=== PATIENT | male | born 1980 | race Caucasian/White ===

== ENCOUNTER 2021-04-16 21:41 | Emergency (ER) | payer BC ==
[2021-04-16] MEDS ORDERED: Tetracaine 0.5% PF 4 ML BOT ONE (22:16)
[2021-04-16] MEDS ORDERED: Fluorescein Opthalmic Strip ONE (22:51)
[2021-04-16] MEDS ORDERED: HYDROcodone/Acetaminophen 10/325 mg Tablet ONE (22:51)
[2021-04-16] MEDS ORDERED: Lorazepam 2 MG/ML VIAL ONE (23:24)
[2021-04-17] MEDS ORDERED: Ketorolac Tromethamine 30 MG/ML VIAL ONE (01:28)
[2021-04-17] MEDS ORDERED: Erythromycin Base 0.5% Oint 1 GM TUBE ONE (01:48)
[2021-04-17] MEDS ORDERED: Morphine 10 MG/ML VIAL ONE (02:19)
== END 2021-04-17 04:10 | disposition home or self-care (01) ==
LOC: CSHERS 21:41
DX: T15.92XA Foreign body on external eye, part unspecified, left eye, initial encounter (principal); T15.91XA Foreign body on external eye, part unspecified, right eye, initial encounter
CPT/HCPCS: 96374; 96375; J1885; J2060; J2270